=== PATIENT | female | born 2000 | race Caucasian/White ===

== ENCOUNTER 2024-05-28 09:59 | Outpatient (OUT) | payer OTHER, SELFPAY ==
[2024-05-28 11:09] LABS: Basophils Absolute Auto 0.1 10^3/uL (0.0-0.1); Basophils Percent Auto 0.6 % (0.2-2.0); Eosinophils Absolute Auto 0.1 10^3/uL (0.0-0.7); Eosinophils Percent Auto 0.9 % (0.9-7.0); Hematocrit 31.7 % (36.0-48.0); Immature Granulocytes Abs Auto 0.17 10^3/uL (0.00-0.03); Immature Granulocytes Pct Auto 1.6 % (0.0-0.5); Lymphocytes Absolute Auto 1.1 10^3/uL (1.2-3.8); Lymphocytes Percent Auto 10.7 % (20.5-60.0); Mean Corpuscular HGB Conc 34.7 g/dL (29.9-35.2); Mean Corpuscular Hemoglobin 32.5 pg (26.7-34.0); Mean Corpuscular Volume 93.8 fL (81.0-99.0); Mean Platelet Volume 8.9 fL (9.5-13.5); Monocytes Absolute Auto 0.5 10^3/uL (0.3-0.8); Neutrophils Absolute Auto 8.5 10^3/uL (1.4-6.5); Neutrophils Percent Auto 81.2 % (43.0-75.0); Platelet Count 272 10^3/uL (150-450); Red Blood Count 3.38 10^6/uL (4.20-5.40); Red Cell Distribution Width 13.2 % (11.0-15.0); White Blood Count 10.4 10^3/uL (4.0-11.0)
[2024-05-28 12:01] LABS: Glucose 1 Hour 131 mg/dL (<130)
== END 2024-05-28 10:00 | disposition home or self-care (01) ==
LOC: LAB 10:00
PROVIDERS: Visit Provider Obstetrics & Gynecology
DX: Z13.1 Encounter for screening for diabetes mellitus (principal)
CPT/HCPCS: 36415; 82950; 85025

== ENCOUNTER 2024-06-18 07:40 | Outpatient (RCR) | payer OTHER, SELFPAY ==
[2024-06-18 12:25] VITALS: BP 97/64; PULSE 93; TEMP 37.3; O2SAT 98
[2024-06-18] MEDS: RHO(D) IMMUNE GLOBULIN 1,500 UNIT SYRINGE 1500 UNIT IM (12:33)
== END 2024-06-22 13:36 | disposition home or self-care (01) ==
LOC: INF 07:40
PROVIDERS: Visit Provider Obstetrics & Gynecology
DX: O26.893 Other specified pregnancy related conditions, third trimester (principal); Z67.91 Unspecified blood type, Rh negative; Z3A.00 Weeks of gestation of pregnancy not specified
CPT/HCPCS: 36415; 86850; 86900; 86901; 96372; J2791

== ENCOUNTER 2024-07-24 06:34 | Outpatient (OUT) | payer OTHER, SELFPAY ==
--- NOTE | 2024-07-24 09:08 | US_ITS ---
[address] [address] Patient Name: HARPAL VARELA MRN: [id number] date: 2000 Sex: F Assigned Patient Location: [facility] Current Patient Location: Accession/Order Number: [id number] Exam Date: 07/24/2024 09:10 Report Date: 07/26/2024 17:20 At the request of: ZAID SALAZAR Procedure: US OB BPP w non-stress EXAM: US OB BPP w non-stress HISTORY: Carrier of spinal muscular atrophy COMPARISON: None. TECHNIQUE: Biophysical profile ultrasound. FINDINGS: breathing movement: 2 Gross body movement: 2 tone: 2 Qualitative amniotic fluid volume: 2 Amniotic fluid index: 10.8 Heart rate: 167 bpm US/US OB BPP w non-stress IMPRESSION: Biophysical profile score of 8. Electronically authenticated by: JAMES LINDQUIST Date: 07/26/2024 17:20
[2024-07-24 09:31] VITALS: BP 124/76; PULSE 115
== END 2024-07-24 10:12 | disposition home or self-care (01) ==
LOC: US 06:35 → FBC 08:58
PROVIDERS: Visit Provider Obstetrics & Gynecology
DX: D69.1 Qualitative platelet defects (principal); Z14.8 Genetic carrier of other disease
CPT/HCPCS: 76818

== ENCOUNTER 2024-07-28 01:12 | Outpatient (OUT) | payer OTHER, SELFPAY ==
--- NOTE | 2024-07-28 | US_ITS ---
The [address] [address] Patient Name: HARPAL VARELA MRN: [id number] date: 2000 Sex: F Assigned Patient Location: [facility] Current Patient Location: Accession/Order Number: [id number] Exam Date: 07/29/2024 10:28 Report Date: 07/29/2024 10:36 At the request of: ZAID SALAZAR DO Procedure: US OB growth ULTRASOUND OB GROWTH CLINICAL INFORMATION: Carrier of spinal muscular atrophy Z14.8 COMPARISON: 07/24/2024 There is a fetus in cephalic presentation. There is cardiac activity with heart rate of 141 bpm. The amniotic fluid index measures 13.8 cm which is within normal range. The following measurements were obtained: Biparietal diameter 8.8 cm 35 weeks 3 days 86% Head circumference 31.2 cm 35 weeks 0 days 41% Abdominal circumference 31.2 cm 35 weeks 1 day 85% Femur length 6.4 cm 33 weeks 1 day 21% The composite ultrasound age based on these measurements is 34 weeks 5 days +/- 2 weeks 3 days. The estimated date of delivery is September 03, 2024. Estimated weight is 5 lbs. 7 oz. +/- 13 ounces. The ratios are within normal limits. US/US OB growth IMPRESSION: SINGLE LIVE INTRAUTERINE GESTATION WITH ULTRASOUND AGE OF 34 WEEKS 5 DAYS. Impression dictated by: Kanchan Arias M.D.07/29/2024 10:36 AM Dictation Location: [facility] Electronically authenticated by: [id number] Y Date: 07/29/2024 10:36
[2024-07-28 13:12] VITALS: BP 116/75; PULSE 109
== END 2024-07-28 13:43 | disposition home or self-care (01) ==
LOC: US 01:12 → FBC 12:47
PROVIDERS: Visit Provider Obstetrics & Gynecology
DX: Z14.8 Genetic carrier of other disease (principal); Z3A.34 34 weeks gestation of pregnancy
CPT/HCPCS: 59025; 76816

== ENCOUNTER 2024-07-31 00:12 | Outpatient (OUT) | payer OTHER, SELFPAY ==
--- NOTE | 2024-07-31 | US_ITS ---
The [address] [address] Patient Name: HARPAL VARELA MRN: [id number] date: 2000 Sex: F Assigned Patient Location: US Current Patient Location: US Accession/Order Number: [id number] Exam Date: 07/31/2024 10:57 Report Date: 07/31/2024 11:01 At the request of: ZAID SALAZAR DO Procedure: US OB BPP w non-stress US OB BPP w non-stress 07/31/2024 10:48 AM SIGNS AND SYMPTOMS: CARRIER OF SPINAL MUSCULAR ATROPHY Z14.8 COMPARISON: None. TECHNIQUE: Limited pelvic ultrasound using transvesical sonography. FINDINGS: An intrauterine is identified. The visualized fetus has an estimated gestational age of 240 days by estimated due date. A heart rate is identified at 1 53 bpm. A normal amount of amniotic fluid is present. There is no evidence for placenta previa or subchorionic hemorrhage. Pelvic survey reveals no gross abnormalities. Biophysical profile score: Gross body movement: 2 tone: 2 breathin Amniotic fluid volume: 2 (amniotic fluid index 11.93 cm) US/US OB BPP w non-stress IMPRESSION: Single live IUP with an estimated gestational age of 240 days with a normal heart rate. Biophysical profile score: 01/14 Impression dictated by: Isidoro Serrano M.D.07/31/2024 11:01 AM Dictation Location: [facility] Electronically authenticated by: [id number] Y Date: 07/31/2024 11:01
[2024-07-31 09:39] VITALS: BP 109/55; PULSE 102
== END 2024-07-31 10:05 | disposition home or self-care (01) ==
LOC: US 00:12 → FBC 09:10
PROVIDERS: Visit Provider Obstetrics & Gynecology
DX: O26.893 Other specified pregnancy related conditions, third trimester (principal); Z14.8 Genetic carrier of other disease; Z3A.34 34 weeks gestation of pregnancy
CPT/HCPCS: 76818

== ENCOUNTER 2024-08-04 00:13 | Outpatient (OUT) | payer OTHER, SELFPAY ==
[2024-08-04 13:00] VITALS: BP 123/65; PULSE 107
== END 2024-08-04 13:40 | disposition home or self-care (01) ==
LOC: FBCO 00:14 → FBC 12:46
PROVIDERS: Visit Provider Obstetrics & Gynecology
DX: O26.893 Other specified pregnancy related conditions, third trimester (principal)
CPT/HCPCS: 59025

== ENCOUNTER 2024-08-07 00:25 | Outpatient (OUT) | payer OTHER, SELFPAY ==
--- NOTE | 2024-08-07 08:58 | US_ITS ---
[place] [id number] Patient Name: HARPAL VARELA MRN: [id number] date: 2000 Sex: F Assigned Patient Location: [facility] Current Patient Location: Accession/Order Number: [id number] Exam Date: 08/07/2024 10:33 Report Date: 08/07/2024 10:36 At the request of: ZAID SALAZAR DO Procedure: US OB BPP w non-stress US OB BPP w non-stress 08/07/2024 9:49 AM SIGNS AND SYMPTOMS: ^09/09/2024 ^CARRIER OF SPINAL MUSULAR ATROPHY Z14.8 COMPARISON: 07/31/2024 TECHNIQUE: Limited pelvic ultrasound using transvesical sonography. FINDINGS: FINDINGS: An intrauterine is identified. The visualized fetus has an estimated gestational age of 247 days by estimated due date. A heart rate is identified at 148 bpm. A normal amount of amniotic fluid is present. There is no evidence for placenta previa or subchorionic hemorrhage. Pelvic survey reveals no gross abnormalities. Biophysical profile score: Gross body movement: 2 tone: 2 breathin Amniotic fluid volume: 2 (amniotic fluid index 11.04 cm) US/US OB BPP w non-stress IMPRESSION: Single live IUP with an estimated gestational age of 247 days with a normal heart rate. Biophysical profile score: 01/14 Impression dictated by: Isidoro Serrano M.D.08/07/2024 10:36 AM Dictation Location: [place] [address] Electronically authenticated by: [id number] Y Date: 08/07/2024 10:36
[2024-08-07 09:50] VITALS: BP 110/63; PULSE 96
== END 2024-08-07 10:19 | disposition home or self-care (01) ==
LOC: US 00:26 → FBC 08:55
PROVIDERS: Visit Provider Obstetrics & Gynecology
DX: Z14.8 Genetic carrier of other disease (principal); Z3A.35 35 weeks gestation of pregnancy
CPT/HCPCS: 76818

== ENCOUNTER 2024-08-11 01:28 | Outpatient (OUT) | payer OTHER, SELFPAY ==
[2024-08-11 13:01] VITALS: BP 117/69; PULSE 112
== END 2024-08-11 13:55 | disposition home or self-care (01) ==
LOC: FBCO 01:29 → FBC 12:54
PROVIDERS: Visit Provider Obstetrics & Gynecology
DX: Z34.93 Encounter for supervision of normal pregnancy, unspecified, third trimester (principal); Z14.8 Genetic carrier of other disease
CPT/HCPCS: 36415; 59025; 87081

== ENCOUNTER 2024-08-11 19:49 | Outpatient (REF) | payer OTHER, SELFPAY | END 2024-08-11 19:50 | disposition home or self-care (01) | LOC: LAB 19:49 | PROVIDERS: Visit Provider Physician Assistant | DX: Z34.93 Encounter for supervision of normal pregnancy, unspecified, third trimester (principal) | CPT/HCPCS: 36415; 87081 ==

== ENCOUNTER 2024-08-14 00:20 | Outpatient (OUT) | payer OTHER, SELFPAY ==
--- NOTE | 2024-08-14 09:02 | US_ITS ---
[address] [address] Patient Name: HARPAL VARELA MRN: [id number] date: 2000 Sex: F Assigned Patient Location: [facility] Current Patient Location: [facility] Accession/Order Number: [id number] Exam Date: 08/14/2024 10:20 Report Date: 08/14/2024 10:25 At the request of: ZAID SALAZAR DO Procedure: US OB BPP w non-stress Ultrasound obstetrical biophysical profile HISTORY: Biweekly biophysical profile assessment. A carrier of spinal muscular atrophy. Prior ultrasound obstetrical biophysical profile 08/07/2024 demonstrating score of 8 out of 8. There is adequate breathing movement, gross body movement, tone and amniotic fluid volume. Total score is 8 out of 8. The amniotic fluid index is 10.0 cm. The heart rate is 153 bpm. US/US OB BPP w non-stress IMPRESSION: Adequate ultrasound biophysical profile with scoring of 8 out of 8. Impression dictated by: Maurice Ward M.D.08/14/2024 10:25 AM Dictation Location: [facility] Electronically authenticated by: [id number] Y Date: 08/14/2024 10:25
[2024-08-14 09:41] VITALS: BP 119/62; PULSE 109
== END 2024-08-14 10:34 | disposition home or self-care (01) ==
LOC: US 00:20 → FBC 08:57
PROVIDERS: Visit Provider Obstetrics & Gynecology
DX: O26.893 Other specified pregnancy related conditions, third trimester (principal)
CPT/HCPCS: 76818

== ENCOUNTER 2024-08-18 13:15 | Outpatient (OUT) | payer OTHER, SELFPAY ==
[2024-08-18 13:21] VITALS: BP 116/68; PULSE 114
== END 2024-08-18 13:46 | disposition home or self-care (01) ==
LOC: FBCO 13:16 → FBC 13:18
PROVIDERS: Visit Provider Obstetrics & Gynecology
DX: O26.893 Other specified pregnancy related conditions, third trimester (principal); Z3A.36 36 weeks gestation of pregnancy
CPT/HCPCS: 59025

== ENCOUNTER 2024-08-21 08:58 | Outpatient (OUT) | payer OTHER, SELFPAY ==
[2024-08-21 09:04] VITALS: BP 112/65; PULSE 100
--- NOTE | 2024-08-21 09:09 | US_ITS ---
[address] [address] Patient Name: HARPAL VARELA MRN: [id number] date: 2000 Sex: F Assigned Patient Location: [facility] Current Patient Location: Accession/Order Number: [id number] Exam Date: 08/22/2024 14:52 Report Date: 08/22/2024 14:53 At the request of: ZAID SALAZAR DO Procedure: US OB BPP w non-stress Biophysical profile. Reason for exam: Carrier spinal muscular atrophy Comparison: BPP 08/14/2024. TECHNIQUE: Transabdominal imaging of the gravid uterus was obtained. FINDINGS: Ticket Manager reports a BPP of 8 out of 8. ANTON is normal at 15.2 cm. heart rate 144 bpm. US/US OB BPP w non-stress Impression: BPP 8 out of 8. Impression dictated by: Migel Sandoval Jr., D.O.08/22/2024 2:53 PM Dictation Location: [place] [address] Electronically authenticated by: [id number] Y Date: 08/22/2024 14:53
--- NOTE | 2024-08-21 09:10 | US_ITS ---
[address] [address] Patient Name: HARPAL VARELA MRN: [id number] date: 2000 Sex: F Assigned Patient Location: US Current Patient Location: Accession/Order Number: [id number] Exam Date: 08/22/2024 14:54 Report Date: 08/22/2024 14:55 At the request of: ZAID SALAZAR DO Procedure: US OB growth Growth ultrasound. Reason for exam: Carrier spinal muscular atrophy Comparison: Ultrasound 07/28/2024 TECHNIQUE: Transabdominal imaging of the gravid uterus was obtained. FINDINGS: Single live intrauterine at 37 weeks 1 day by anatomic measurements. Appropriate growth. Estimated weight is 3139 g. ANTON is normal at 15.23 cm. heart rate is 144 bpm. presentation is cephalic at time of imaging. US/US OB growth Impression: Single live intrauterine 37 weeks 1 day by anatomic measurements. Appropriate growth. Impression dictated by: Migel Sandoval Jr., D.O.08/22/2024 2:55 PM Dictation Location: [facility] Electronically authenticated by: [id number] Y Date: 08/22/2024 14:55
--- NOTE | 2024-08-21 10:01 | PC.NURSE ---
growth US 55% 3139gms.
== END 2024-08-21 09:58 | disposition home or self-care (01) ==
LOC: US 08:58 → FBC 09:00
PROVIDERS: Visit Provider Obstetrics & Gynecology
DX: O26.893 Other specified pregnancy related conditions, third trimester (principal); Z3A.37 37 weeks gestation of pregnancy
CPT/HCPCS: 76816; 76818

== ENCOUNTER 2024-08-25 12:47 | Outpatient (OUT) | payer OTHER, SELFPAY ==
[2024-08-25 12:55] VITALS: BP 122/78; PULSE 93
== END 2024-08-25 13:30 | disposition home or self-care (01) ==
LOC: FBCO 12:48 → FBC 12:51
PROVIDERS: Visit Provider Obstetrics & Gynecology
DX: O26.893 Other specified pregnancy related conditions, third trimester (principal)
CPT/HCPCS: 59025

== ENCOUNTER 2024-08-28 08:56 | Outpatient (OUT) | payer OTHER, SELFPAY ==
--- NOTE | 2024-08-28 | US_ITS ---
[address] [address] Patient Name: HARPAL VARELA MRN: [id number] date: 2000 Sex: F Assigned Patient Location: [facility] Current Patient Location: Accession/Order Number: [id number] Exam Date: 08/29/2024 10:55 Report Date: 08/29/2024 10:56 At the request of: ZAID SALAZAR DO Procedure: US OB BPP w non-stress Biophysical profile. Reason for exam: Carrier spinal muscular atrophy Comparison: BPP 08/14/2024. TECHNIQUE: Transabdominal imaging of the gravid uterus was obtained. FINDINGS: Balance Engineer reports a BPP of 8 out of 8. ANTON is normal at 11.8 cm. heart rate 157bpm. US/US OB BPP w non-stress Impression: BPP 8 out of 8. Impression dictated by: Migel Sandoval Jr., D.O.08/29/2024 10:56 AM Dictation [facility] Electronically authenticated by: [id number] Y Date: 08/29/2024 10:56
[2024-08-28 09:32] VITALS: BP 109/55; PULSE 96
== END 2024-08-28 09:55 | disposition home or self-care (01) ==
LOC: US 08:57 → FBC 09:01
PROVIDERS: Visit Provider Obstetrics & Gynecology
DX: O26.893 Other specified pregnancy related conditions, third trimester (principal); Z14.8 Genetic carrier of other disease
CPT/HCPCS: 76818

== ENCOUNTER 2024-09-01 12:46 | Outpatient (OUT) | payer OTHER, SELFPAY ==
[2024-09-01 12:53] VITALS: BP 128/74; PULSE 104
== END 2024-09-01 13:25 | disposition home or self-care (01) ==
LOC: FBCO 12:46 → FBC 12:48
PROVIDERS: Visit Provider Obstetrics & Gynecology
DX: O26.893 Other specified pregnancy related conditions, third trimester (principal); Z3A.38 38 weeks gestation of pregnancy
CPT/HCPCS: 59025

== ENCOUNTER 2024-09-02 05:01 | Inpatient (IN) | payer OTHER, SELFPAY ==
[2024-09-02] VITALS (25 sets, daily range): BP systolic 107–138; BP diastolic 55–77; PULSE 85–139; TEMP 35.8–36.9
[2024-09-02 05:40] LABS: Hematocrit 25.6 % (36.0-48.0); Hemoglobin 8.6 g/dL (12.0-16.0); Mean Corpuscular HGB Conc 33.6 g/dL (29.9-35.2); Mean Corpuscular Hemoglobin 27.1 pg (26.7-34.0); Mean Corpuscular Volume 80.8 fL (81.0-99.0); Mean Platelet Volume 9.1 fL (9.5-13.5); Platelet Count 346 10^3/uL (150-450); Red Blood Count 3.17 10^6/uL (4.20-5.40); Red Cell Distribution Width 16.9 % (11.0-15.0); White Blood Count 9.3 10^3/uL (4.0-11.0)
[2024-09-02 05:52] LABS: Amphetamine Screen Urine NEGATIVE (NEGATIVE); Barbiturates Screen Urine NEGATIVE (NEGATIVE); Benzodiazepines Screen Urine NEGATIVE (NEGATIVE); Buprenorphine Screen Urine NEGATIVE (NEGATIVE); Cannabinoid Screen Urine NEGATIVE (NEGATIVE); Cocaine Screen Urine NEGATIVE (NEGATIVE); Methadone Screen Urine NEGATIVE (NEGATIVE); Methamphetamines Screen Urine NEGATIVE (NEGATIVE); Opiate Screen Urine NEGATIVE (NEGATIVE); Oxycodone Screen Urine NEGATIVE (NEGATIVE); Phencyclidine Screen Urine NEGATIVE (NEGATIVE); Tricyclic Antidepressant Urine NEGATIVE (NEGATIVE)
[2024-09-02] MEDS: 0.9 % SODIUM CHLORIDE 1,000 ML 125 ML IV ×2 (05:55→12:30)
[2024-09-02] MEDS: OXYTOCIN/0.9 % SODIUM CHLORIDE 10 UNITS/500 ML PLAST..BAG 6 UNIT IV (06:00)
[2024-09-02] MEDS: NALBUPHINE HCL 10 MG/ML AMPULE IV (12:25)
--- NOTE | 2024-09-02 13:45 | PM.OBPRCVD ---
Procedure Intrapartal events: None Induction method: per pitocin protocol Delivery augmentation: rupture of membranes and pitocin Delivery monitor: external FHT and external uterine Route of delivery: L&D Laceration Description: periurethral - 1st degree and perineal - 1st degree Delivery repair: Vicryl Estimated blood loss (mL): 300 Anesthesia type: None Disposition: floor Delivery date: 09/02/24 Gender: female presentation: vertex Placental delivery description: Spontaneous cord description: 3 Vessels and Nuchal Cord
[2024-09-02] MEDS: OXYTOCIN/0.9 % SODIUM CHLORIDE 20 UNITS/1,000 ML PLAST..BAG 125 UNIT IV (13:59)
[2024-09-02] MEDS: LIDOCAINE HCL 1% 200 MG/20 ML MDV INJ (14:00)
[2024-09-02] MEDS: GLYCERIN/WITCH HAZEL PADS 1 PAD TOPICAL (16:29)
[2024-09-02] MEDS: BENZOCAINE/MENTHOL 85 GRAM SPRAY BOTTLE 1 APPLIC TOPICAL (16:29)
[2024-09-02] MEDS: IBUPROFEN 600 MG TABLET PO ×2 (16:39→22:01)
[2024-09-03] MEDS: IBUPROFEN 600 MG TABLET PO ×2 (04:51→10:57)
[2024-09-03 04:53] VITALS: BP 127/64; PULSE 91
[2024-09-03 06:53] LABS: Basophils Absolute Auto 0.1 10^3/uL (0.0-0.1); Basophils Percent Auto 0.8 % (0.2-2.0); Eosinophils Absolute Auto 0.1 10^3/uL (0.0-0.7); Eosinophils Percent Auto 0.5 % (0.9-7.0); Hemoglobin 7.4 g/dL (12.0-16.0); Immature Granulocytes Abs Auto 0.11 10^3/uL (0.00-0.03); Immature Granulocytes Pct Auto 1.1 % (0.0-0.5); Lymphocytes Absolute Auto 1.4 10^3/uL (1.2-3.8); Lymphocytes Percent Auto 13.7 % (20.5-60.0); Mean Corpuscular HGB Conc 32.9 g/dL (29.9-35.2); Mean Corpuscular Hemoglobin 26.9 pg (26.7-34.0); Mean Corpuscular Volume 81.8 fL (81.0-99.0); Monocytes Absolute Auto 0.7 10^3/uL (0.3-0.8); Monocytes Percent Auto 7.1 % (1.7-12.0); Neutrophils Absolute Auto 7.8 10^3/uL (1.4-6.5); Neutrophils Percent Auto 76.8 % (43.0-75.0); Platelet Count 313 10^3/uL (150-450); Red Blood Count 2.75 10^6/uL (4.20-5.40); White Blood Count 10.1 10^3/uL (4.0-11.0)
[2024-09-03 06:55] LABS: Hematocrit 22.5 % (36.0-48.0)
--- NOTE | 2024-09-03 07:57 | P.OBPN_ITS ---
OB - PN: Subj Subjective Patient comments: no complaints and pain well controlled [place] status: doing well Exam Constitutional Vital Signs, click to edit/add: Last Vital Signs Temp 97.6 F 09/02/24 20:49 Pulse 91 H 09/03/24 04:53 Resp 16 09/02/24 09:28 BP 127/64 09/03/24 04:53 O2 Del Method Room Air 09/03/24 04:30 Documenting provider has reviewed patient's vital signs: yes Common normals: no apparent distress Respiratory Common normals: clear to auscultation bilaterally Cardio Common normals: regular rate and regular rhythm GI Common normals: Normal to inspection, nondistended, normoactive bowel sounds present Extremity Common normals: no clubbing, cyanosis or edema Results Labs Labs: Short CBC 09/03/24 Range/Units 06:30 WBC 10.1 (4.0-11.0) 10^3/uL Hgb 7.4 L (12.0-16.0) g/dL Hct 22.5 L* (36.0-48.0) % Plt Count 313 (150-450) 10^3/uL OB - PN: A/P Plan - Vaginal Delivery day: 1 Plan: routine care, discharge home and follow up 6 weeks Time Spent with Patient Time: Total time spent is greater than 50% in coordination of care (as documented) at patient's floor/unit and/or counseling patient: Total time spent with greater than 50% in coordination of care (as documented) at patient's floor/unit and/or counseling patient: less than 15 minutes
[2024-09-03 08:20] VITALS: BP 107/69; PULSE 95; TEMP 36.7
[2024-09-03] MEDS: DOCUSATE SODIUM 100 MG CAPSULE PO (10:58)
[2024-09-03] MEDS: RHO(D) IMMUNE GLOBULIN 1,500 UNIT SYRINGE 1500 UNIT IV (10:59)
[2024-09-03] MEDS: GLYCERIN/WITCH HAZEL PADS 1 PAD TOPICAL (13:44)
== END 2024-09-03 18:00 | disposition home or self-care (01) | DRG 807 ==
PROVIDERS: Admitting Provider Obstetrics & Gynecology; Visit Provider Obstetrics & Gynecology
DX: O26.893 Other specified pregnancy related conditions, third trimester (principal); Z37.0 Single live birth; O70.0 First degree perineal laceration during delivery; Z67.31 Type AB blood, Rh negative; O69.81X0 Labor and delivery complicated by cord around neck, without compression, not applicable or unspecified; Z3A.39 39 weeks gestation of pregnancy; Z14.8 Genetic carrier of other disease
CPT/HCPCS: 36415; 59050; 59410; 80307; 85025; 85027; 85461; 86850; 86900; 86901; 86923; J2300; J2791

== ENCOUNTER 2024-09-06 08:46 | Outpatient (OUT) | payer OTHER, SELFPAY ==
[2024-09-06 12:30] VITALS: BP 114/78; PULSE 96; TEMP 36.3; O2SAT 98
--- NOTE | 2024-09-06 12:30 | PC.NURSE ---
Patient arrives ambulatory for follow up visit with in arms. Reports feeling very good, baby eating well, adjusting well. quiet and sleeping in mom's arms. Zully reports baby has been eating about every 2.5-3 hours during the day, cluster feeding in the evening, and then feeds every 2-2.5 hours at night. Encouraged to continue waking baby up every 1.5-2.5 hours during the day to adjust switching sleep schedule. Bleeding is scant to minimal, incision healing well in perineum, tolerating diet and bowel movements. Baby nursing well, assessment completed and puts baby to breast independently. Discussed family changes and adjustments, milk supply in, sibling changes. Patient feeds well for 15 minutes, discharged home with peds follow up tomorrow.
== END 2024-09-06 13:00 | disposition home or self-care (01) ==
PROVIDERS: Visit Provider Obstetrics & Gynecology
DX: Z39.1 Encounter for care and examination of lactating mother (principal)